=== PATIENT | male | born 1945 | race Caucasian/White ===

== ENCOUNTER 2023-10-24 16:47 | Observation (INO) ==
[2023-10-24] MEDS: SODIUM CHLORIDE 0.9% 500 ML IV SCH (17:03)
--- NOTE | 2023-10-24 17:03 | Emergency Department Note ---
Impression & Plan Syncope, Vomiting, Anemia, Hypocalcemia, Heme positive stool ED Provider Note NAME: OMAR DOVE AGE: 77 SEX: M : 1945 ARRIVES VIA: Ambulance INFORMANT: [Patient][ems, nursing] ED PROVIDER(S): [Hernan Pryor MD] CHIEF COMPLAINT: Syncope HISTORY OF PRESENT ILLNESS: The patient is a 77-year-old male who was at a gathering sitting. He had about a half a beer. He had just finished eating. He began to feel dizzy and lightheaded. He leaned forward to try and get better blood flow to his head but apparently, he passed out. He was out for a short time. After waking up. The patient had the urge to move his bowels, he did have a bowel movement, it was nonbloody. Patient did vomit 1 time, he still feels a bit nauseated. There was no chest pain, no shortness of breath. He had felt fine earlier. He wonders if the half a beer got to him, he does not typically drink any alcohol. In route, the patient was given 4 mg of Zofran IV, he was given a liter of IV saline. PMHx/PSHx/Social Hx: See Below PHYSICAL EXAM: GENERAL: Patient is in no acute distress. Holding a vomit bag. HEENT: No acute trauma, normocephalic atraumatic, mucous membranes moist, no nasal congestion. NECK: No stridor, no adenopathy, no meningismus, trachea is midline. LUNGS: Clear to auscultation bilaterally, no wheeze, no rhonchi, breath sounds equal. HEART: Somewhat bradycardic, regular rhythm, no murmurs. ABDOMEN: Soft, nontender, no peritonitis. EXTREMITIES: No cyanosis, full range of motion of all the joints without pain or difficulty. NEUROLOGIC: Oriented x 3, no acute motor or sensory deficits, no focal weakness. SKIN: No jaundice, no diaphoresis. Rectal: Brown stool, heme positive. DIFFERENTIAL DIAGNOSIS: Dehydration, alcohol reaction, electrolyte imbalance, dysrhythmia, anemia, UTI, among others. EMERGENCY DEPARTMENT PROCEDURES: Orthostatic vital signs were negative. MEDICAL DECISION MAKING: There is no leukocytosis, in fact, the white count is slightly low. A mild anemia was seen with a hemoglobin of 11.3, this was a 4 point drop compared to previous testing-a rectal exam showed brown stool that was heme positive. Platelet count slightly low at 121. Patient did have a low potassium and low carbon dioxide, likely from dehydration. No renal failure. Calcium was low at 7.9. No concerning liver enzyme elevation. Chest x-ray does not show pneumonia or CHF. ECG shows a sinus bradycardia with a first-degree AV block. No dysrhythmia or ischemia. Orthostatic vital signs were negative. Cardiac enzyme testing x 2 did not show any evidence for cardiac injury. Patient appeared to be in a euthyroid state. Urinalysis did not show infection. Anaplasmosis and Babesia smears were negative. Lyme disease testing was negative. Patient received 1.5 L of IV saline. He was given IV Zofran and IV Phenergan. He received 1000 mg of IV calcium. The patient is currently feeling somewhat improved. Given the drop in hemoglobin, given his electrolyte disturbances, given the syncopal event prior to arrival, I do think the patient deserves a hospital stay. He requires monitoring and electrolyte replacement. I did speak with the patient and case management, the on-call hospitalist was consulted. Prior/Outside records/notes reviewed: Today's EMS notes describing his presentation and transport to this hospital. ECG per my interpretation: Indication was syncope. The ECG shows a sinus bradycardia with a first-degree AV block. There is no acute ST elevation, no PVCs. The QTc is at 428. Compared to an ECG from 02 June 2023, the rate has decreased slightly. Continuous Cardiac Monitoring per my interpretation: An order was placed for continuous cardiac monitoring. The monitor shows a rate of 55 with sinus bradycardia and a first-degree block. Imaging/x-ray results per my interpretation: Chest x-ray does not show mediastinal widening, CHF or pneumonia. Chronic Medical/Social conditions affecting care: Advanced age. Care/Management discussed with: Case management, the on-call hospitalist. Level of care consideration(s): After review of the information above and other included data: --I believe the patient requires escalation of care to admission DISPOSITION: Admission Past Med/Surg History Problem List On pre-exposure prophylaxis for HIV Heme positive stool (Acute) Hypocalcemia (Acute) Anemia (Acute) Vomiting (Acute) Syncope (Acute) Cervical radiculopathy Epicondylitis, lateral Carpal tunnel syndrome, right Atherogenic dyslipidemia Polyuria Hypertension Erectile dysfunction BPH (benign prostatic hyperplasia) GERD (gastroesophageal reflux disease) Ulcerative colitis Medical History Erectile dysfunction Ulcerative colitis Polyuria Hypertension GERD (gastroesophageal reflux disease) BPH (benign prostatic hyperplasia) Atherogenic dyslipidemia Surgical History History of esophagogastroduodenoscopy (EGD) Hx of colonoscopy [place] teeth extracted H/O wrist surgery History of tonsillectomy H/O toe surgery History of hip surgery History of appendectomy History of ankle surgery H/O cardiac catheterization well over 10 years ago, left chest pain[facility] [place] [facility]found to be from rib pain; f/u dr. [place] Family History Mother Stroke COPD (chronic obstructive pulmonary disease) Hypertension Heart disease Kidney disease Coronary heart disease Father Alzheimer disease Grandfather (Paternal) Stomach cancer Social History Smoking Status: Never smoker Tobacco Type: Cigarettes Age Started Using Tobacco: 20; Age Quit Using Tobacco: 42; packs per day: 2; Cigarettes Per Day: 2-2.5 packs daily; Second Hand Exposure: No; Do You Dip or Chew Tobacco: No; Hx Alcohol Use: Yes Alcohol type: beer and wine Alcohol Intake Frequency: Monthly or Less Hx Substance Use: Yes Last Used Substance Other:: uses gummies, 1/2 every night Preferred Language: Tuvaluan Communication Ability: Effective Visual Impairment: No Limitations Hearing Ability: Normal Deputy Building Guard Required: No Beliefs That Will Affect Care: None marital status: Current Living Situation: Alone current occupational status: retired How many Children do You have: 1 How many Children do You have Comment: 1 son, 1 Feels Safe at Home: Yes Childhood Exposure to Second-Hand Smoke: Yes (father) Diet: regular caffeine: Yes during the past year weight has: remained stable Dental Care, Regularly: Yes Physical Activity Frequency: Daily Seatbelt Use: always Sunscreen Use: No Do you think of yourself as: lesbian/zavaleta/homosexual Assistive Devices: Glasses Allergies Allergies Allergy/AdvReac Type Severity Reaction Status Date / Time No Known Allergies Allergy Verified 10/24/23 17:41 Home Meds Home Medications Medication Instructions Recorded Confirmed atenolol 25 mg tablet 25 mg PO QAM 01/28/23 10/24/23 atorvastatin 10 mg tablet 10 mg PO HS 01/28/23 10/24/23 cholecalciferol (vitamin D3) 50 50 mcg PO QAM 01/28/23 10/24/23 mcg (2,000 unit) capsule emtricitabine 200 mg-tenofovir 1 tab PO HS 01/28/23 10/24/23 disoproxil fumarate 300 mg tablet (Truvada) hydrochlorothiazide 12.5 mg tablet 12.5 mg PO QAM 01/28/23 10/24/23 vedolizumab 300 mg intravenous 300 mg IV Q8WK 01/28/23 10/24/23 solution (Entyvio) DMEA 1 tab PO BID 03/17/23 10/24/23 losartan 100 mg tablet 50 mg PO QAM 03/17/23 10/24/23 magnesium gluconate 27 mg 27 mg PO HS 03/17/23 10/24/23 magnesium (500 mg) tablet mecobalamin (vitamin B12) 500 mcg 500 mcg PO QAM 03/17/23 10/24/23 chewable tablet ascorbic acid-collagen [Collagen 3 tab PO DAILY 06/04/23 10/24/23 Skin Renewal] ascorbic acid (vitamin C) 1,000 mg 1 g PO QAM 09/07/23 10/24/23 tablet (Vitamin C) coenzyme Q10 100 mg capsule (Co 100 mg PO HS 09/07/23 10/24/23 Q-10) esomeprazole magnesium 20 mg 20 mg PO QAM 09/07/23 10/24/23 capsule,delayed release lactobacillus combination no.4 3 3,000 mmu cells PO QAM 09/07/23 10/24/23 billion cell capsule (Probiotic) turmeric 400 mg capsule 800 mg PO QAM 09/07/23 10/24/23 psyllium husk 3.4 gram/5.4 gram 1 tbsp PO DAILY 09/10/23 10/24/23 oral powder (Metamucil) zinc citrate 16.7 mg chewable 0 mg PO DAILY 10/24/23 10/24/23 tablet Previous Rx's Medication Instructions Recorded desmopressin 0.1 mg tablet 0.1 mg PO HS #30 tabs 06/05/23 tadalafil 5 mg tablet 5 mg PO QAM #30 tabs 09/23/23 oxybutynin chloride 5 mg 5 mg PO HS #90 tabs 10/20/23 tablet,extended release 24 hr Results & Data (ED) Vital Signs Vital Signs - 24 hr 10/24/23 16:57 10/24/23 17:00 10/24/23 17:00 Temperature 36.6 C Temperature Source Oral Pulse Rate - Lying Pulse Rate - Sitting Pulse Rate - Standing Pulse Rate 55 L 58 L Pulse Rate [Apical] Pulse Rate from SpO2 Sensor Pulse Rhythm [Apical] Pulse Strength [Apical] Respiratory Rate 14 Respiratory Effort / Characteristics Respiratory Depth Respiratory Pattern Blood Pressure - Lying Blood Pressure - Sitting Blood Pressure- Standing Blood Pressure 118/59 L Blood Pressure [Right Arm] Blood Pressure Mean 78 Blood Pressure Mean [Right Arm] Blood Pressure Position [Right Arm] Pulse Oximetry 99 Oxygen Delivery Method Room Air Room Air Sepsis Recent Fever Within 48 Hours No Sepsis New/Unexplained Change in Mental Status No Sepsis Action Taken by Nursing No Action Required 10/24/23 17:00 10/24/23 17:03 10/24/23 17:15 Temperature Temperature Source Pulse Rate - Lying Pulse Rate - Sitting Pulse Rate - Standing Pulse Rate 54 L 53 L Pulse Rate [Apical] Pulse Rate from SpO2 Sensor 53 L 52 L Pulse Rhythm [Apical] Pulse Strength [Apical] Respiratory Rate 18 15 Respiratory Effort / Characteristics Respiratory Depth Respiratory Pattern Blood Pressure - Lying Blood Pressure - Sitting Blood Pressure- Standing Blood Pressure Blood Pressure [Right Arm] Blood Pressure Mean Blood Pressure Mean [Right Arm] Blood Pressure Position [Right Arm] Pulse Oximetry 100 100 Oxygen Delivery Method Room Air Room Air Room Air Sepsis Recent Fever Within 48 Hours Sepsis New/Unexplained Change in Mental Status Sepsis Action Taken by Nursing 10/24/23 17:36 10/24/23 17:39 10/24/23 17:42 Temperature Temperature Source Pulse Rate - Lying Pulse Rate - Sitting Pulse Rate - Standing Pulse Rate 57 L 60 Pulse Rate [Apical] Pulse Rate from SpO2 Sensor 56 L 58 L Pulse Rhythm [Apical] Pulse Strength [Apical] Respiratory Rate 14 Respiratory Effort / Characteristics Respiratory Depth Respiratory Pattern Blood Pressure - Lying Blood Pressure - Sitting Blood Pressure- Standing Blood Pressure 137/70 Blood Pressure [Right Arm] Blood Pressure Mean 113 Blood Pressure Mean [Right Arm] Blood Pressure Position [Right Arm] Pulse Oximetry 95 92 Oxygen Delivery Method Room Air Sepsis Recent Fever Within 48 Hours Sepsis New/Unexplained Change in Mental Status Sepsis Action Taken by Nursing 10/24/23 17:45 10/24/23 17:48 10/24/23 18:00 Temperature Temperature Source Pulse Rate - Lying Pulse Rate - Sitting Pulse Rate - Standing Pulse Rate 56 L 57 L Pulse Rate [Apical] Pulse Rate from SpO2 Sensor 55 L 58 L Pulse Rhythm [Apical] Pulse Strength [Apical] Respiratory Rate 17 15 Respiratory Effort / Characteristics Respiratory Depth Respiratory Pattern Blood Pressure - Lying Blood Pressure - Sitting Blood Pressure- Standing Blood Pressure 128/68 Blood Pressure [Right Arm] Blood Pressure Mean 97 Blood Pressure Mean [Right Arm] Blood Pressure Position [Right Arm] Pulse Oximetry 97 95 Oxygen Delivery Method Sepsis Recent Fever Within 48 Hours Sepsis New/Unexplained Change in Mental Status Sepsis Action Taken by Nursing 10/24/23 18:06 10/24/23 18:30 10/24/23 18:33 Temperature Temperature Source Pulse Rate - Lying 59 L Pulse Rate - Sitting 63 Pulse Rate - Standing 65 Pulse Rate 63 Pulse Rate [Apical] Pulse Rate from SpO2 Sensor 62 Pulse Rhythm [Apical] Pulse Strength [Apical] Respiratory Rate 12 Respiratory Effort / Characteristics Respiratory Depth Respiratory Pattern Blood Pressure - Lying 132/63 Blood Pressure - Sitting 150/93 H Blood Pressure- Standing 171/77 H Blood Pressure 145/70 H Blood Pressure [Right Arm] Blood Pressure Mean 115 Blood Pressure Mean [Right Arm] Blood Pressure Position [Right Arm] Pulse Oximetry 99 Oxygen Delivery Method Sepsis Recent Fever Within 48 Hours Sepsis New/Unexplained Change in Mental Status Sepsis Action Taken by Nursing 10/24/23 18:54 10/24/23 19:00 Temperature Temperature Source Pulse Rate - Lying Pulse Rate - Sitting Pulse Rate - Standing Pulse Rate 62 Pulse Rate [Apical] 61 Pulse Rate from SpO2 Sensor 64 Pulse Rhythm [Apical] Regular Pulse Strength [Apical] Normal Respiratory Rate 11 L 11 L Respiratory Effort / Characteristics Non-Labored Respiratory Depth Normal Respiratory Pattern Regular Blood Pressure - Lying Blood Pressure - Sitting Blood Pressure- Standing Blood Pressure Blood Pressure [Right Arm] 130/68 Blood Pressure Mean Blood Pressure Mean [Right Arm] 88 Blood Pressure Position [Right Arm] Lying Pulse Oximetry 99 98 Oxygen Delivery Method Room Air Sepsis Recent Fever Within 48 Hours Sepsis New/Unexplained Change in Mental Status Sepsis Action Taken by [facility] Medications Current Medication List: was personally reviewed by me Laboratory Data Attestation: I reviewed the patient's lab results. 10/24/23 16:59 10/24/23 16:59 Lab Results 10/24/23 10/24/23 10/24/23 Range/Units 16:59 18:08 18:23 WBC 4.70 L (4.8-10.8) K/ul RBC 3.53 L (4.70-6.10) M/uL Hgb 11.3 L (14.0-18.0) g/dl Hct 32.8 L (42.0-52.0) % MCV 92.9 (80.0-100.0) fL MCH 32.0 (25.0-34.0) pg MCHC 34.5 (32.0-36.0) g/dL RDW Std Deviation 43.2 (36.4-46.3) fL RDW Coeff of [place] 12.8 (11.5-14.5) % Plt Count 121 L (130-400) K/uL MPV 9.8 (9.4-12.4) fL Immature Gran % (Auto) 0.2 % Neut % (Auto) 69.8 % Lymph % (Auto) 18.7 % [place] % (Auto) 10.9 % Eos % (Auto) 0.0 % Baso % (Auto) 0.4 % Reticulocyte % (Auto) 2.29 H (0.50-2.00) % Neut # (Auto) 3.28 (1.40-6.50) K/uL Lymph # (Auto) 0.88 L (1.20-3.40) K/uL [place] # (Auto) 0.51 (0.11-0.59) K/uL Eos # (Auto) 0.00 (0.00-0.50) K/uL Baso # (Auto) 0.02 (0.00-0.20) K/uL Reticulocyte # 0.080 (0.020-0.100) 10^6/uL Immature Gran # (Auto) 0.01 (0.01-0.20) K/uL Sodium 138 (136-145) mmol/L Potassium 3.4 L (3.5-5.1) mmol/L Chloride 111 H (98-107) mmol/L Carbon Dioxide 19 L (21-32) mmol/L Anion Gap 8 (3-11) BUN 27 H (6-23) mg/dl Creatinine 1.04 (0.6-1.4) mg/dl Est Cr Clr Drug Dosing 68.1 ml/min Est GFR ( Amer) 81.0 ml/min Est GFR (Non-Af Amer) 69.9 ml/min BUN/Creatinine Ratio 26.0 H (10-20) Glucose 105 H (70-99(Fasting)) mg/dl Calcium 7.9 L (8.6-10.3) mg/dl Magnesium 1.8 (1.7-2.4) mg/dl Total Bilirubin 0.4 (0.2-1.0) mg/dl AST 22 (13-39) U/L ALT 14 (7-52) U/L Alkaline Phosphatase 52 (34-104) U/L Troponin I High Sens 2.8 (0-20) pg/ml Total Protein 5.9 L (6.0-8.3) gm/dl Albumin 3.4 (3.4-5.0) gm/dl Globulin 2.5 (2.5-4.0) gm/dl Albumin/Globulin Ratio 1.4 (0.9-2) TSH 0.970 (0.300-4.500) uIu/ml Urine Color Yellow Urine Appearance Clear (Clear) Urine pH 5.5 (4.5-7.5) Ur Specific [place] 1.020 (1.000-1.030) Urine Protein Negative (Negative) Urine Glucose (UA) Negative (Negative) Urine Ketones Negative (Negative) Urine Blood Negative (Negative) Urine Nitrite Negative (Negative) Urine Bilirubin Negative (Negative) Urine Urobilinogen Negative (Negative) Ur Leukocyte Esterase Negative (Negative) Anaplasma Smear See Comment Babesia Smear See Comment Lyme Disease Screen Negative (Negative) 10/24/23 Range/Units 19:30 WBC (4.8-10.8) K/ul RBC (4.70-6.10) M/uL Hgb (14.0-18.0) g/dl Hct (42.0-52.0) % MCV (80.0-100.0) fL MCH (25.0-34.0) pg MCHC (32.0-36.0) g/dL RDW Std Deviation (36.4-46.3) fL RDW Coeff of [place] (11.5-14.5) % Plt Count (130-400) K/uL MPV (9.4-12.4) fL Immature Gran % (Auto) % Neut % (Auto) % Lymph % (Auto) % [place] % (Auto) % Eos % (Auto) % Baso % (Auto) % Reticulocyte % (Auto) (0.50-2.00) % Neut # (Auto) (1.40-6.50) K/uL Lymph # (Auto) (1.20-3.40) K/uL [place] # (Auto) (0.11-0.59) K/uL Eos # (Auto) (0.00-0.50) K/uL Baso # (Auto) (0.00-0.20) K/uL Reticulocyte # (0.020-0.100) 10^6/uL Immature Gran # (Auto) (0.01-0.20) K/uL Sodium (136-145) mmol/L Potassium (3.5-5.1) mmol/L Chloride (98-107) mmol/L Carbon Dioxide (21-32) mmol/L Anion Gap (3-11) BUN (6-23) mg/dl Creatinine (0.6-1.4) mg/dl Est Cr Clr Drug Dosing ml/min Est GFR ( Amer) ml/min Est GFR (Non-Af Amer) ml/min BUN/Creatinine Ratio (10-20) Glucose (70-99(Fasting)) mg/dl Calcium (8.6-10.3) mg/dl Magnesium (1.7-2.4) mg/dl Total Bilirubin (0.2-1.0) mg/dl AST (13-39) U/L ALT (7-52) U/L Alkaline Phosphatase (34-104) U/L Troponin I High Sens 3.9 (0-20) pg/ml Total Protein (6.0-8.3) gm/dl Albumin (3.4-5.0) gm/dl Globulin (2.5-4.0) gm/dl Albumin/Globulin Ratio (0.9-2) TSH (0.300-4.500) uIu/ml Urine Color Urine Appearance (Clear) Urine pH (4.5-7.5) Ur Specific [place] (1.000-1.030) Urine Protein (Negative) Urine Glucose (UA) (Negative) Urine Ketones (Negative) Urine Blood (Negative) Urine Nitrite (Negative) Urine Bilirubin (Negative) Urine Urobilinogen (Negative) Ur Leukocyte Esterase (Negative) Anaplasma Smear Cancelled Babesia Smear Cancelled Lyme Disease Screen (Negative) Administered Medications Discontinued Medications Sodium Chloride (Nss) 500 mls @ 999 mls/hr IV .Q31M GRICEL Stop: 10/24/23 17:30 Last Infusion: 10/24/23 17:34 Dose: Infused Documented By: Admin: 10/24/23 17:03 Dose: 999 mls/hr Documented By: HARDEEP Promethazine HCl (Phenergan) 6.25 mg in 50.25 mls @ 201 mls/hr IV NOW STA Stop: 10/24/23 17:13 Last Infusion: 10/24/23 17:29 Dose: Infused Documented By: Admin: 10/24/23 17:14 Dose: 201 mls/hr Documented By: HARDEEP Calcium Gluconate () 1,000 mg in 60 mls @ 240 mls/hr IV NOW STA Stop: 10/24/23 18:23 Last Infusion: 10/24/23 19:20 Dose: Infused Documented By: Admin: 10/24/23 18:37 Dose: 240 mls/hr Documented By: YENY Ondansetron HCl (Ondansetron Inj 2 Mg/Ml 2 Ml Vial) 4 mg IV NOW STA Stop: 10/24/23 17:00 Last Admin: 10/24/23 17:11 Dose: 4 mg Documented By: HARDEEP Imaging Data Radiologist's Impression: Chest X-Ray 10/24/23 16:52 XR chest 1V portable CLINICAL HISTORY: syncope TECHNIQUE: Single frontal radiograph of the chest was obtained. Comparison: None available at the time of this dictation. FINDINGS: No lines and tubes are seen. The cardiomediastinal silhouette is normal. The lungs are clear. No evidence of pleural effusion or pneumothorax. IMPRESSION: No acute chest disease. ACT 112: Negative or not required by law. Electronically signed by: Jonny Rendon M.D. 10/24/2023 5:55 PM Discharge Plan Visit Data Chief Complaint: Syncope Stated Complaint: SYNCOPE, NAUSEA ED Provider: Hernan Pryor Discharge Problem: Syncope, Vomiting, Anemia, Hypocalcemia, Heme positive stool Patient Disposition: Admitted As Inpatient Condition: Fair Discharge Instructions Interventions: ED Discharge Assessment Last Done: 10/24/23 21:24 Discharge Problem: Syncope Qualifiers: Syncope type: unspecified Qualified Code(s): R55 - Syncope and collapse Vomiting Qualifiers: Vomiting type: unspecified Nausea presence: with nausea Qualified Code(s): R 11.2 - Nausea with vomiting, unspecified Anemia Qualifiers: Anemia type: unspecified type Qualified Code(s): D64.9 - Anemia, unspecified
[2023-10-24] MEDS: ONDANSETRON INJ 2 MG/ML 2 ML VIAL IV STA (17:11)
[2023-10-24] MEDS: PROMETHAZINE 6.25 MG/50.25 ML BAG IV STA (17:14)
[2023-10-24 17:51] LABS: Albumin Globulin Ratio 1.4 (0.9-2); Albumin Level 3.4 gm/dl (3.4-5.0); Bilirubin,Total 0.4 mg/dl (0.2-1.0); Calcium 7.9 mg/dl (8.6-10.3); Creatinine Clr Calc Pharmacy 68.1 ml/min; Est GFR (Non-African American) 69.9 ml/min; Globulin 2.5 gm/dl (2.5-4.0); Magnesium 1.8 mg/dl (1.7-2.4); Potassium 3.4 mmol/L (3.5-5.1); Total Protein 5.9 gm/dl (6.0-8.3)
[2023-10-24 17:56] LABS: Basophils # (auto) 0.02 K/uL (0.00-0.20); Basophils % (auto) 0.4 %; Hematocrit (blood only) 32.8 % (42.0-52.0); Hemoglobin 11.3 g/dl (14.0-18.0); Immature Granulocytes # (auto) 0.01 K/uL (0.01-0.20); Immature Granulocytes % (auto) 0.2 %; Lymphocytes # (auto) 0.88 K/uL (1.20-3.40); Lymphocytes % (auto) 18.7 %; Mean Corpuscular Hgb Conc 34.5 g/dL (32.0-36.0); Mean Corpuscular Volume 92.9 fL (80.0-100.0); Mean Platelet Volume 9.8 fL (9.4-12.4); Monocytes # (auto) 0.51 K/uL (0.11-0.59); Monocytes % (auto) 10.9 %; Neutrophils # (auto) 3.28 K/uL (1.40-6.50); Neutrophils % (auto) 69.8 %; Platelet Count 121 K/uL (130-400); RDW Coefficient of Variation 12.8 % (11.5-14.5); RDW Standard Deviation 43.2 fL (36.4-46.3); Red Blood Count 3.53 M/uL (4.70-6.10)
--- NOTE | 2023-10-24 17:56 | XRay Report ---
XR chest 1V portable CLINICAL HISTORY: syncope TECHNIQUE: Single frontal radiograph of the chest was obtained. Comparison: None available at the time of this dictation. FINDINGS: No lines and tubes are seen. The cardiomediastinal silhouette is normal. The lungs are clear. No evid ence of pleural effusion or pneumothorax. IMPRESSION: No acute chest disease. ACT 112: Negative or not required by law. Electronically signed by: Jonny Rendon M.D. 10/24/2023 5:55 PM
[2023-10-24 17:57] LABS: Troponin I High Sensitivity 2.8 pg/ml (0-20)
[2023-10-24 18:07] LABS: Thyroid Stimulating Hormone 0.97 uIu/ml (0.300-4.500)
[2023-10-24 18:33] LABS: Appearance Urine Clear (Clear); Bilirubin Urine Negative (Negative); Blood Urine Negative (Negative); Color Urine Yellow; Glucose Urine UA Negative (Negative); Ketones Urine Negative (Negative); Leukocyte Esterase Urine Negative (Negative); Nitrite Urine Negative (Negative); Protein Urine Negative (Negative); Urobilinogen Urine Negative (Negative); pH Urine 5.5 (4.5-7.5)
[2023-10-24] MEDS: CALCIUM GLUCONATE 1,000 MG/60 ML BAG IV STA (18:37)
--- NOTE | 2023-10-24 19:00 | History & Physical Report ---
Date of Service October 24, 2023 Assessment & Plan (1) Syncope: Plan: Syncope With prodrome followed by complete syncope for a few minutes. Nausea and bowel movement after but did not have incontinence/shaking/seizure like activity during DDx includes vasovagal, anemia. Lower suspicion for seizure/neurogenic/cardiogenic based on prodrome - Pt reprots he has had severe episodes of vasovagal syncope in the past, and vertigo many years ago. no recent sx. EKG sinus bradycardia redemonstrated, first-degree AV block redemonstrated. No acute ischemic changes. Patient is thrombocytopenic. Lyme, Anaplasma PCR, and peripheral smear are pending Orthostatics are normal on admission Admit to medical telemetry Echo pending he is not hypoglycemic on admission. No history of diabetes, does not take antiglycemic's He has urgency with bowel movements at baseline, otherwise has no infectious symptoms including URI symptoms, UTI symptoms, abdominal pain or change in bowel movements, headache/meningeal symptoms, or rashes. No evidence of sepsis on admission. Tickborne testing is pending. (2) Anemia: Plan: Anemia Denies any history of clinical bleeding, history of melena, hematochezia, hematemesis. No epigastric pain. EC quiescent at last colonoscopy 04/2022 MCV 92 Iron panel, B12, folate ordered Hemoglobin trended every 8 hours. Has not had any clinical bleeding. Has had positive occult blood before due to hemorrhoid, has never had any black or bloody bowel movements. He has no epigastric pain. Unlikely to represent an acute GI bleed. PPI converted to Protonix daily, if rapid drop in hemoglobin or clinical bleeding/melena is observed then if 80 mg bolus and start drip. Patient is on Entyvio for his UC and is at risk for Kamran syndrome. Has concurrent thrombocytopenia. AIHI rule out, blood smear/reticulocyte count/haptoglobin/LDH/Elda test ordered. If positive hold further doses of Entyvio, consult hematology oncology, start 1 mg/kg methylprednisolone daily +/- rituximab No indication for blood transfusion at time of admission. Given acute drop in hemoglobin compared to prior consent and type and screen precaution nearly completed. (3) Ulcerative colitis: Plan: On Entyvio 300 mg IV every 8 weeks Next colonoscopy was due 2024. Last colonoscopy Endoscopy 04/2022 was with normal esophagus, normal stomach, erythematous duodenopathy. (4) BPH (benign prostatic hyperplasia): Plan: Patient has a history of BPH, overactive bladder, and nocturia for which she is on DDAVP, tadalafil, oxybutynin chronically. These are continued (5) GERD (gastroesophageal reflux disease): Plan: PPI as noted (6) Hypertension: Plan: No evidence of orthostasis on admission, and orthostatic testing is normal. Renal function is normal. Antihypertensives are continued, atenolol held for bradycardia/heart block (7) Cervical radiculopathy: Plan: Without acute myelopathy, no acute change in symptoms. No acute change in management (8) On pre-exposure prophylaxis for HIV: Plan: - Uses preventively, pt reports he came out as zavaleta at 67 and has used since Regular STD testing, PrEP with Truvada, no history of G/C+ or positive HIV pos itive test Plan DVT prophylaxis: SCDs, for prophylaxis deferred due to anemia CODE STATUS: DNR/DNI Disposition: Medical telemetry Diet: Regular History of Present Illness Primary Care Provider: Moncho Caicedo DO Hany is a 77-year-old male with a PMHx of ulcerative colitis on Entyvio, BPH/nocturia/overactive bladder, MSM on PrEP with Truvada, hypertension, first- degree heart block who presents with an episode of syncope with prodrome and wh ich occurred without bowel/bladder incontinence or seizure-like activity Went to a picnic his community was hosting near [place]. Had some food and half a beer when he got lightheaded and put his head between his legs, but then friends told him he passed out. Was out fo ra few minutes. On waking up was nauseus and had to use the bathroom. Has a hx of UC. Stayed in the [facility] and road service locksmith brought him here. [place] better after initial medicines and IVF. Threw up once. Stomach feels a little off, but nausea finally resolved. He repots his balance is always a little off due to a fused subtalar joint, but feels a little lightheaded when ambulating today. No change in extremity sensation or strength. No numbness or tingling in the arms or legs. Just underwent an EMG for his RIGHT arm a few weeks ago, and has come cervical compression and also w/ carpal tunnel which improved after a RIGHT carpal tunnel shot, and a TENX procedure in his LEFT elbow but other than this has no change in strength. no change in strength the last few days. Recently moved to the area. Moved here after working in [place] for [employer] and also lived in [place]. Moved here this past January. Normally has BMs 3-4x per day due to UC with urgency. Has some increased urgency the last day or two. No bloody or black bowel movements. Is doing well on Entyvio infusions and UC has been under good control. No bleeding since the first 3 infusions. Does have a hemorrhoid which can get irritated at times. has not been anemic to his knowledge Normally has blood work with [employer] every 3-6 months. Has this done in [place]. No recent illnesses No fever, chills no cough or dyspnea no chest pain, no palpitations no hx of heart attacks, no history of stroke Last colonoscopy was 04/2022, quiescent UC. Pt reprots this was in April of this year for next colo. Last one was done in [place]. Records pending Takes desmopressin at night for nocturia. Also on oxybutinin for bladder spasm. Also on cialis 5mg for this. Medical History: Reviewed Medications: Reviewed. Took his morning medications Surgical History: Reviewed Family history: Reviewed Allergies: Reviewed. NKDA Social History: No tobacco use. Rare ETOH use, and only half a beer today. Code Status: DNR/DNI Allergies Allergy/AdvReac Type Severity Reaction Status Date / Time No Known Allergies Allergy Verified 10/24/23 17:41 Home Medications Medication Instructions Recorded Confirmed Type atenolol 25 mg tablet 25 mg PO QAM 01/28/23 10/24/23 History atorvastatin 10 mg tablet 10 mg PO HS 01/28/23 10/24/23 History cholecalciferol (vitamin D3) 50 50 mcg PO QAM 01/28/23 10/24/23 History mcg (2,000 unit) capsule emtricitabine 200 mg-tenofovir 1 tab PO HS 01/28/23 10/24/23 History disoproxil fumarate 300 mg tablet (Truvada) hydrochlorothiazide 12.5 mg tablet 12.5 mg PO QAM 01/28/23 10/24/23 History vedolizumab 300 mg intravenous 300 mg IV Q8WK 01/28/23 10/24/23 History solution (Entyvio) DMEA 1 tab PO BID 03/17/23 10/24/23 History losartan 100 mg tablet 50 mg PO QAM 03/17/23 10/24/23 History magnesium gluconate 27 mg 27 mg PO HS 03/17/23 10/24/23 History magnesium (500 mg) tablet mecobalamin (vitamin B12) 500 mcg 500 mcg PO QAM 03/17/23 10/24/23 History chewable tablet ascorbic acid-collagen [Collagen 3 tab PO DAILY 06/04/23 10/24/23 History Skin Renewal] desmopressin 0.1 mg tablet 0.1 mg PO HS #30 tabs 06/05/23 10/24/23 Rx ascorbic acid (vitamin C) 1,000 mg 1 g PO QAM 09/07/23 10/24/23 History tablet (Vitamin C) coenzyme Q10 100 mg capsule (Co 100 mg PO HS 09/07/23 10/24/23 History Q-10) esomeprazole magnesium 20 mg 20 mg PO QAM 09/07/23 10/24/23 History capsule,delayed release lactobacillus combination no.4 3 3,000 mmu cells PO QAM 09/07/23 10/24/23 History billion cell capsule (Probiotic) turmeric 400 mg capsule 800 mg PO QAM 09/07/23 10/24/23 History psyllium husk 3.4 gram/5.4 gram 1 tbsp PO DAILY 09/10/23 10/24/23 History oral powder (Metamucil) tadalafil 5 mg tablet 5 mg PO QAM #30 tabs 09/23/23 10/24/23 Rx oxybutynin chloride 5 mg 5 mg PO HS #90 tabs 10/20/23 10/24/23 Rx tablet,extended release 24 hr zinc citrate 16.7 mg chewable 0 mg PO DAILY 10/24/23 10/24/23 History tablet Past Med/Surg History Problem List On pre-exposure prophylaxis for HIV Heme positive stool (Acute) Hypocalcemia (Acute) Anemia (Acute) Vomiting (Acute) Syncope (Acute) Cervical radiculopathy Epicondylitis, lateral Carpal tunnel syndrome, right Atherogenic dyslipidemia Polyuria Hypertension Erectile dysfunction BPH (benign prostatic hyperplasia) GERD (gastroesophageal reflux disease) Ulcerative colitis Medical History Erectile dysfunction Ulcerative colitis Polyuria Hypertension GERD (gastroesophageal reflux disease) BPH (benign prostatic hyperplasia) Atherogenic dyslipidemia Surgical History History of esophagogastroduodenoscopy (EGD) Hx of colonoscopy [place] teeth extracted H/O wrist surgery History of tonsillectomy H/O toe surgery History of hip surgery History of appendectomy History of ankle surgery H/O cardiac catheterization well over 10 years ago, left [facility] [place] [facility]found to be from [facility]; f/u jorge powell Family History Mother Stroke COPD (chronic obstructive pulmonary disease) Hypertension Heart disease Kidney disease Coronary heart disease Father Alzheimer disease Grandfather (Paternal) Stomach cancer Social History Smoking Status: Former smoker Tobacco Type: Cigarettes Age Started Using Tobacco: 20; Age Quit Using Tobacco: 42; packs per day: 2; Cigarettes Per Day: 2-2.5 packs daily; Second Hand Exposure: No; Do You Dip or Chew Tobacco: No; Hx Alcohol Use: Yes Alcohol type: beer and wine Alcohol Intake Frequency: Monthly or Less Hx Substance Use: Yes Last Used Substance Other:: uses gummies, 1/2 every night Preferred Language: Indonesian Communication Ability: Effective Visual Impairment: No Limitations Hearing Ability: Normal Social Security Specialist Required: No Beliefs That Will Affect Care: None marital status: Current Living Situation: Alone current occupational status: retired How many Children do You have: 1 How many Children do You have Comment: 1 son, 1 Feels Safe at Home: Yes Childhood Exposure to Second-Hand Smoke: Yes (father) Diet: regular caffeine: Yes during the past year weight has: remained stable Dental Care, Regularly: Yes Physical Activity Frequency: Daily Seatbelt Use: always Sunscreen Use: No Do you think of yourself as: lesbian/zavaleta/homosexual Assistive Devices: Glasses Physical Exam Physical Exam: General: A&Ox3. NAD. Cooperative. HEENT: Atraumatic, normocephalic. Pulm: CTAB A&P. -wheezes, -rales, -rhonchi. Symmetrical chest rise. No increased work of breathing. No respiratory distress. Cardiac: RRR, -mrg. Radial pulses intact and symmetrical. Abdominal: Nontender, nondistended, soft. BS present. no epigastric TTP CRANIAL NERVES: II: Pupils equal and reactive, no relative afferent pupillary defect, no VF cuts III, IV, : EOM intact, no gaze preference or deviation, no nystagmus. V: normal sensation in V1, V2, and V3 segments bilaterally VII: no asymmetry, no nasolabial fold flattening VIII: normal hearing to speech IX, X: normal palatal elevation, no uvular deviation XI: 5/5 head turn and 5/5 shoulder shrug bilaterally XII: midline tongue protrusion MOTOR: RUE: 5/5 Shoulder internal rotation, external rotation, flexion, extension, abduction, adduction 5/5 Elbow flexion/extension, wrist flexi on/extension 5/5 care transport nurse strength, finger flexion/extens ion, interosseus LUE: 5/5 Shoulder internal rotation, external rotation, flexion, extension, ab duction, adduction 5/5 Elbow flexion/extension, wrist flexi on/extension 5/5 care transport nurse strength, finger flexion/extens ion, interosseus RLE: 5/5 to hip flexion, ankle dorsiflexion/p lantarflexion LLE: 5/5 to hip flexion, ankle dorsiflexion/p lantarflexion SENSORY: Normal to touch in upper and lower extremities without deficit or asymmetry Results & Data Results & Data Vital Signs (Past 12 Hours) Vital Signs Temp Pulse Resp BP Pulse Ox O2 Del Method 10/24/23 17:36 57 L 95 Room Air 10/24/23 17:15 53 L 15 100 Room Air 10/24/23 17:03 54 L 18 100 Room Air 10/24/23 17:00 Room Air 10/24/23 17:00 Room Air 10/24/23 17:00 36.6 C 58 L 14 118/59 L 99 Room Air 10/24/23 16:57 55 L PG Care Time/CCT Total # of Minutes Spent Total Time Spent with Patient: Total time spent is greater than 50% in coordination of care (as documented) at patient's floor/unit and/or counseling patient: Coding Level of Care Code 35520 INT INP/OBS CARE MIN Diagnoses Syncope R55 Syncope type: unspecified Anemia D64.9 Anemia type: unspecified type Ulcerative colitis K51.90 BPH (benign prostatic hyperplasia) N40.0 GERD (gastroesophageal reflux disease) K21.9 Hypertension I10 Cervical radiculopathy M54.12 On pre-exposure prophylaxis for HIV Z79.899 (1) Syncope Syncope type: unspecified Qualified Code(s): R55 - Syncope and collapse (2) Anemia Anemia type: unspecified type Qualified Code(s): D64.9 - Anemia, unspecified
[2023-10-24 19:50] LABS: Reticulocyte % 2.29 % (0.50-2.00)
[2023-10-24] MEDS ORDERED: HYDROCORTISONE HC 2.5% CRM 30GM TUBE EXT PRN (19:53)
[2023-10-24] MEDS ORDERED: NON-FORMULARY MEDICATION (Coenzyme Q10 [Co Q-10] 100 mg Capsule) PO SCH (21:51)
[2023-10-24] MEDS ORDERED: POLYETHYLENE (MIRALAX) 17 GM PACK PO PRN (21:51)
[2023-10-24] MEDS ORDERED: ACETAMINOPHEN 325 MG TAB PO PRN (21:51)
[2023-10-24] MEDS ORDERED: ONDANSETRON INJ 2 MG/ML 2 ML VIAL IV PRN (21:51)
[2023-10-24] MEDS: EMTRICITABINE/TENOFOVIR TAB PO SCH (22:24)
[2023-10-24] MEDS: CALCIUM CARBONATE 500 MG CHEWABLE TAB PO SCH (22:24)
[2023-10-24] MEDS: OXYBUTYNIN CHLORIDE XL 5 MG TABCR PO SCH (22:24)
[2023-10-24] MEDS: LOSARTAN POTASSIUM 50 MG TAB PO SCH (22:24)
[2023-10-24] MEDS: ATORVASTATIN 10 MG TAB PO SCH (22:24)
[2023-10-24] MEDS: DESMOPRESSIN ACETATE 0.1 MG TAB PO SCH (22:24)
[2023-10-24] MEDS: NON-FORMULARY MEDICATION (Magnesium Gluconate 27 mg magnesium (500 mg) tablet) PO SCH (22:27)
[2023-10-25 07:12] LABS: Basophils # (auto) 0.01 K/uL (0.00-0.20); Basophils % (auto) 0.2 %; Hematocrit (blood only) 40.4 % (42.0-52.0); Hemoglobin 13.9 g/dl (14.0-18.0); Immature Granulocytes # (auto) 0.02 K/uL (0.01-0.20); Immature Granulocytes % (auto) 0.4 %; Lymphocytes # (auto) 0.92 K/uL (1.20-3.40); Lymphocytes % (auto) 18.9 %; Mean Corpuscular Hemoglobin 32.1 pg (25.0-34.0); Mean Corpuscular Hgb Conc 34.4 g/dL (32.0-36.0); Mean Corpuscular Volume 93.3 fL (80.0-100.0); Mean Platelet Volume 9.7 fL (9.4-12.4); Monocytes # (auto) 0.45 K/uL (0.11-0.59); Monocytes % (auto) 9.3 %; Neutrophils # (auto) 3.46 K/uL (1.40-6.50); Neutrophils % (auto) 71.2 %; Platelet Count 129 K/uL (130-400); RDW Coefficient of Variation 13.1 % (11.5-14.5); RDW Standard Deviation 44.4 fL (36.4-46.3); Red Blood Count 4.33 M/uL (4.70-6.10); White Blood Count 4.86 K/ul (4.8-10.8)
[2023-10-25 07:29] LABS: Calcium 9.5 mg/dl (8.6-10.3); Creatinine Clr Calc Pharmacy 69.3 ml/min; Est GFR (Non-African American) 73.3 ml/min; Magnesium 2.2 mg/dl (1.7-2.4); Potassium 4.8 mmol/L (3.5-5.1)
[2023-10-25] MEDS: CHOLECALCIFEROL 25 MCG (1000 UNITS) TAB PO SCH (07:44)
[2023-10-25] MEDS: hydroCHLOROthiazide 25 MG TAB PO SCH (07:45)
[2023-10-25] MEDS: CYANOCOBALAMIN (B-12) 500 MCG TABLET PO SCH (07:45)
[2023-10-25 07:46] LABS: Ferritin 95.7 ng/ml (8-388)
[2023-10-25] MEDS: ADVANCED PROBIOTIC 625 MG CAPSULE PO SCH (07:46)
[2023-10-25 07:51] LABS: Folate (Folic Acid),Ser orPlas 8.98 ng/ml (>5.38)
--- NOTE | 2023-10-25 12:43 | XCELERA ---
[id number] [id number]
--- NOTE | 2023-10-25 14:59 | Discharge Summary ---
Discharge Summary Date of Service October 25, 2023 Principal Dx & Hospital Course #1 = Principal Diagnosis (1) Syncope: Syncope With prodrome followed by complete syncope for a few minutes. Nausea and bowel movement after but did not have incontinence/shaking/seizure like activity during - Pt reprots he has had severe episodes of vasovagal syncope in the past, and vertigo many years ago. no recent sx. EKG sinus bradycardia remonstrated, first-degree AV block remonstrated. No acute ischemic changes. - Also thrombocytopenic. Lyme, Anaplasma PCR, and peripheral smear are pending Orthostatics WNL x2. TSH WNL Echo: mild concentric LVH, EF greater than 70%. No significant valvular pathology he is not hypoglycemic on admission. No history of diabetes, does not take antiglycemic's - Atenolol stopped Patient without further prodromal symptoms or episodes of syncope (2) Anemia: Anemia Denies any history of clinical bleeding, history of melena, hematochezia, hematemesis. No epigastric pain. last colonoscopy 04/2022 Iron panel - no iron defieceny anemia , B12, folate WNL Patient is on Entyvio for his UC and is at risk for Kamran syndrome. Has concurrent thrombocytopenia. - AIHI rule out, blood smear/reticulocyte count/haptoglobin/LDH/Elda test pending No indication for blood transfusion at time of admission. Given acute drop in hemoglobin compared to prior consent and type and screen precaution nearly completed. (3) Ulcerative colitis: On Entyvio 300 mg IV every 8 weeks Next colonoscopy was due 2024. Endoscopy 04/2022 was with normal esophagus, normal stomach, erythematous duodenopathy. (4) BPH (benign prostatic hyperplasia): Patient has a history of BPH, overactive bladder, and nocturia for which she is on DDAVP, tadalafil, oxybutynin chronically. These are continued (5) GERD (gastroesophageal reflux disease): PPI as noted (6) Hypertension: No evidence of orthostasis on admission, and orthostatic testing is normal. Renal function is normal. Antihypertensives are continued, atenolol held for bradycardia/heart block (7) On pre-exposure prophylaxis for HIV: - Uses preventively, pt reports he came out as zavaleta at 67 and has used since Regular STD testing, PrEP with Truvada, no history of G/C+ or positive HIV positive test Plan dispo: Discharged home today with 30-day shelter monitor and cardiac and PCP or follow-up Notes For Next Care Provider patient admitted after syncope with prodrome. Atenolol held. Did have first- degree AV block and 2-second long pauses on tele - will proceed with 30 day monitor. Discussed with Dr. Osorio, proceed with 30 day monitor and and can do loop recorder if needed based on those results. Follows with Dr. Dominguez Medication Changes From Visit hold atenolol Admission HPI Per Admitting Provider Hany is a 77-year-old male with a PMHx of ulcerative colitis on Entyvio, BPH/nocturia/overactive bladder, MSM on PrEP with Truvada, hypertension, first- degree heart block who presents with an episode of syncope with prodrome and which occurred without bowel/bladder incontinence or seizure-like activity Went to a picnic his community was hosting near [place]. Had some food and half a beer when he got lightheaded and put his head between his legs, but then friends told him he passed out. Was out fo ra few minutes. On waking up was nauseus and had to use the bathroom. Has a hx of UC. Stayed in the [facility] and translator deaf brought him here. [place] better after initial medicines and IVF. Threw up once. Stomach feels a little off, but nausea finally resolved. He repots his balance is always a little off due to a fused subtalar joint, but feels a little lightheaded when ambulating today. No change in extremity sensation or strength. No numbness or tingling in the arms or legs. Just underwent an EMG for his RIGHT arm a few weeks ago, and has come cervical compression and also w/ carpal tunnel which improved after a RIGHT carpal tunnel shot, and a TENX procedure in his LEFT elbow but other than this has no change in strength. no change in strength the last few days. Recently moved to the area. Moved here after working in [place] for [employer] and also lived in [place]. Moved here this past January. Normally has BMs 3-4x per day due to UC with urgency. Has some increased urgency the last day or two. No bloody or black bowel movements. Is doing well on Entyvio infusions and UC has been under good control. No bleeding since the first 3 infusions. Does have a hemorrhoid which can get irritated at times. has not been anemic to his knowledge Normally has blood work with [facility] every 3-6 months. Has this done in [place]. No recent illnesses No fever, chills no cough or dyspnea no chest pain, no palpitations no hx of heart attacks, no history of stroke Last colonoscopy was 04/2022, quiescent UC. Pt reprots this was in April of this year for next colo. Last one was done in [place]. Records pending Takes desmopressin at night for nocturia. Also on oxybutinin for bladder spasm. Also on cialis 5mg for this. Medical History: Reviewed Medications: Reviewed. Took his morning medications Surgical History: Reviewed Family history: Reviewed Allergies: Reviewed. NKDA Social History: No tobacco use. Rare ETOH use, and only half a beer today. Code Status: DNR/DNI Discharge Exam General: NAD, VS as above, sitting in bed very pleasant Resp: normal respiratory effort, lungs clear to auscultation CV: RRR, no murmur, Abd: normal bowel sounds, non tender, no hepatosplenomegaly Extremities: Moves all extremities, no edema Neuro: A&O x3, Skin: intact, no lesions noted Updated Medication List Medication Instructions Recorded Confirmed Type atenolol 25 mg tablet 25 mg PO QAM 01/28/23 10/24/23 History atorvastatin 10 mg tablet 10 mg PO HS 01/28/23 10/24/23 History cholecalciferol (vitamin D3) 50 50 mcg PO QAM 01/28/23 10/24/23 History mcg (2,000 unit) capsule emtricitabine 200 mg-tenofovir 1 tab PO HS 01/28/23 10/24/23 History disoproxil fumarate 300 mg tablet (Truvada) hydrochlorothiazide 12.5 mg tablet 12.5 mg PO QAM 01/28/23 10/24/23 History vedolizumab 300 mg intravenous 300 mg IV Q8WK 01/28/23 10/24/23 History solution (Entyvio) DMEA 1 tab PO BID 03/17/23 10/24/23 History losartan 100 mg tablet 50 mg PO QAM 03/17/23 10/24/23 History magnesium gluconate 27 mg 27 mg PO HS 03/17/23 10/24/23 History magnesium (500 mg) tablet mecobalamin (vitamin B12) 500 mcg 500 mcg PO QAM 03/17/23 10/24/23 History chewable tablet ascorbic acid-collagen [Collagen 3 tab PO DAILY 06/04/23 10/24/23 History Skin Renewal] desmopressin 0.1 mg tablet 0.1 mg PO HS #30 tabs 06/05/23 10/24/23 Rx ascorbic acid (vitamin C) 1,000 mg 1 g PO QAM 09/07/23 10/24/23 History tablet (Vitamin C) coenzyme Q10 100 mg capsule (Co 100 mg PO HS 09/07/23 10/24/23 History Q-10) esomeprazole magnesium 20 mg 20 mg PO QAM 09/07/23 10/24/23 History capsule,delayed release lactobacillus combination no.4 3 3,000 mmu cells PO QAM 09/07/23 10/24/23 History billion cell capsule (Probiotic) turmeric 400 mg capsule 800 mg PO QAM 09/07/23 10/24/23 History psyllium husk 3.4 gram/5.4 gram 1 tbsp PO DAILY 09/10/23 10/24/23 History oral powder (Metamucil) tadalafil 5 mg tablet 5 mg PO QAM #30 tabs 09/23/23 10/24/23 Rx oxybutynin chloride 5 mg 5 mg PO HS #90 tabs 10/20/23 10/24/23 Rx tablet,extended release 24 hr zinc citrate 16.7 mg chewable 0 mg PO DAILY 10/24/23 10/24/23 History tablet Hospital Stay Data Consultations 10/24/23 18:32 ED Decision to Admit Stat Diagnostic Imagining Performed Chest X-Ray 10/24/23 16:52 XR chest 1V portable CLINICAL HISTORY: syncope TECHNIQUE: Single frontal radiograph of the chest was obtained. Comparison: None available at the time of this dictation. FINDINGS: No lines and tubes are seen. The cardiomediastinal silhouette is normal. The lungs are clear. No evidence of pleural effusion or pneumothorax. IMPRESSION: No acute chest disease. ACT 112: Negative or not required by law. Electronically signed by: Jonny Rendon M.D. 10/24/2023 5:55 PM Pending Results Patient Have Any Pending Studies at Discharge: Yes (tick borne DNA, blood smear ) Discharge Instructions Given to Patient (Per Discharging Provider) Mr. Lang you are at hospitalized after an episode of syncope. We are not sure of the exact cause of the syncope. During hospital stay. Telemetry monitoring showed that you were having a first-degree AV block with a couple pauses lasting 2 seconds. I discussed this with cardiology and they recommended a 30-day heart monitor. They may pursue further implantable monitoring based on the results of this test. You should follow-up with Dr. Dominguez to go over these results. It is possible this was due to low blood pressure or low heart rate. For this reason your atenolol was stopped. Continue to mointor your blood pressure at home and you can discuss with your PCP/account development executive if this should be resued. Make sure that you are staying hydrated. Stop and take breaks if you are feeling light headed or dizzy. On admission you are anemic with other changes to your blood work, these are improving day of discharge, but there is still workup pending. You can discuss these with your PCP. Activity: You can do normal everyday activities as your body allows. Take rest breaks if you feel tired. Do not overexert. Stop activity if you have pain, shortness of breath or feel dizzy. Follow-up appointments: Make an appointment with your primary care physician within one week of discharge. A copy of this summary will be sent to them. Every time you see your primary care physician, or any other doctor, bring your medication list, and a list of questions. CONTACT YOUR PRIMARY CARE PROVIDER if you experience any of the following: Shortness of breath or difficulty breathing Fevers or chills Feeling tired with normal activity or experiencing dizziness or fainting Difficulty following your treatment plan, or difficulty taking medications CALL 911 OR GO TO THE EMERGENCY DEPARTMENT if you experience any of the following: Severe abdominal pain or nausea/vomiting Severe chest pain, or chest pain that radiates (moves) to your jaw or arm Sudden, severe shortness of breath or difficulty breathing Thank you for allowing us to participate in your care. Total Time Total Time Spent Total Time Spent (In Minutes): Time spend day of discharge 40 minutes including direct patient care, medication reconciliation, documentation, review of labs and images, and coordination of care. Coding Level of Care Code 02696 INP/OBS DISCH >30 MIN Diagnoses Syncope R55 Syncope type: unspecified Anemia D64.9 Anemia type: unspecified type Ulcerative colitis K51.90 BPH (benign prostatic hyperplasia) N40.0 GERD (gastroesophageal reflux disease) K21.9 Hypertension I10 On pre-exposure prophylaxis for HIV Z79.899
--- NOTE | 2023-10-26 22:58 | Electrocardiogram Report ---
Test Reason : Blood Pressure : / mmHG Vent. Rate : 054 BPM Atrial Rate : 054 BPM P-R Int : 320 ms QRS Dur : 092 ms QT Int : 452 ms P-R-T Axes : 074 012 047 degrees QTc Int : 428 ms Sinus bradycardia with 1st degree A-V block Abnormal ECG When compared with ECG of 02-JUN-2023 10:01, (unconfirmed) NC interval has increased Confirmed by Parvez Osorio ([id number]) on 10/26/2023 10:58:39 PM Referred By: REFERRED SELF Confirmed By:Parvez Osorio
== END 2023-10-25 16:29 | disposition home or self-care (01) ==
LOC: ED 16:47 → 2N 16:47 → SUATTDRO 19:33 → 2N 21:24